=== PATIENT | female | born 1985 | race African-American/Black ===

== ENCOUNTER 2018-07-01 07:10 | Inpatient (IN) ==
[2018-07-01] MEDS ORDERED: Dextrose 50% in Water 50 ML Vial IV.PUSH PRN (15:54)
[2018-07-01] MEDS ORDERED: Insulin NovoLOG Aspart Correctional Sugar Inj SQ PRN (15:54)
--- NOTE | 2018-07-01 16:30 | P.HP ---
History of Present Illness Primary Care Physician: UNKNOWN Chief Complaint: Left arm weakness, slurred speech, left facial droop History of Present Illness: 32-year-old female with known history of hypertension who presented to the hospital because of left upper extremity weakness, slurred speech, left facial droop. Patient states that she is in normal state of health until she woke up this morning at approximately 530. When she got out of bed she woke up with both her arms extended above her head and she noticed that her left upper extremity was numb and weak. She went into the bathroom and looked at herself in the mirror she noticed that she had left-sided facial droop and when she tried to speak she noticed that she has some slurred speech. Patient states that approximate 15 minutes however symptoms resolved and she was able to speak without any slurring and her facial droop disappeared. She proceeded to take her daughter to the supervisor net making which was at approximately 6:00 this morning when she got back home and the proximal 615 she went to take the garbage out when her left arm was numb again where she could not lift it. She called her who is a physician and he told her that she needs to go to the hospital for further evaluation. By the time the patient got to the emergency department right after 7 AM this morning her symptoms have completely resolved. Patient did have workup which did not indicate any acute stroke or intracranial hemorrhage. It was recommended the patient be observed for TIA. Patient denies any symptoms at this time. - Diagnosis (1) TIA (transient ischemic attack) Review of Systems All other systems reviewed negative except as stated in HPI Neurologic: Reports abnormal speech, Reports localized weakness, Reports weakness PMFSH - History History Provided By: Patient - Medical History Medical History: Medical History (Last Reviewed 07/01/18 @ 16:25 by KEON Greenberg) Fibroids HTN (hypertension) - Surgical History Surgical History: Surgical History (Last Reviewed 07/01/18 @ 16:25 by KEON Greenberg) H/O: - Family History Family History: Family History (Last Updated 07/01/18 @ 16:25 by KEON Greenberg) Father Family history of renal failure Family history of heart disease - Tobacco History Second Hand Smoke Exposure: No Smoking Status: Never smoker - Alcohol History How Often Do You Have a Drink Containing Alcohol: Monthly or less - Substance Use History Substance History: No History of Abuse Medications and Allergies Active Medications: Active Medications Aspirin (Aspirin Chew) 162 mg PO DAILY [facility] Dextrose (D50w Vial) 50 ml IV.PUSH UNSCH PRN PRN Reason: per Hypoglycemic Protocol Glucagon (Glucagon Inj) 1 mg OTHER UNSCH PRN PRN Reason: per Hypoglycemic Protocol Insulin Aspart (Novolog Insulin Correctional Sugar Inj) 0 unit SQ ACHS PRN; Protocol PRN Reason: Per Protocol Allergies Allergy/AdvReac Type Severity Reaction Status Date / Time morphine Allergy Hives Verified 07/01/18 07:23 Home Medications Medication Instructions Recorded Confirmed Type losartan 100 mg PO TID 07/01/18 07/01/18 History Exam Narrative: GENERAL: Well-developed, well-nourished, in no acute distress. alert and orientated HEENT: Head is normocephalic without any lesions or masses noted. Facial features are symmetric. Eyes: Pupils equal round reactive to light. Extraocular muscles are intact. Conjunctivae were clear. Oropharyngeal: Pharynx without any erythema edema. Tongue is midline without deviation. Buccal mucosa is moist without any masses or lesions NECK: Supple without any masses. Trachea midline no deviation. No JVD, no bruits are appreciated CARDIAC: Regular rhythm, regular rate. S1/S2 are heard. No murmurs gallops or rubs. LUNGS: Clear to auscultation bilaterally. No wheeze, rhonchi or rales. No use of accessory muscles on inspiration or expiration. ABDOMEN: Soft, nontender. Nondistended. Bowel sounds heard in all 4 quadrants. No organomegaly or masses. Negative rebound, negative guarding EXTREMITIES: No edema, pulses are equal bilaterally. No cyanosis or clubbing NEUROLOGY: Mood and affect appear appropriate. Cranial nerves II through XII grossly intact. Muscle strength 5/5 in upper and lower extremities bilaterally. Deep tendon reflexes are 2+ in upper and lower extremities bilaterally. Caprini VTE Risk Assessment Caprini VTE Risk Assessment: No/Low Risk (score <= 1) Caprini Risk Assessment Model: Point Value = 1 Point Value = 2 Point Value = 3 Point Value = 5 Age 41-60 Minor surgery BMI > 25 kg/m2 Swollen legs Varicose veins or History of unexplained or recurrent spontaneous Oral contraceptives or hormone replacement Sepsis (< 1 month) Serious lung disease, including pneumonia (< 1 month) Abnormal pulmonary function Acute myocardial infarction Congestive heart failure (< 1 month) History of inflammatory bowel disease Medical patient at bed rest Age 61-74 Arthroscopic surgery Major open surgery (> 45 min) Laparoscopic surgery (> 45 min) Malignancy Confined to bed (> 72 hours) Immobilizing plaster cast Central venous access Age >= 75 History of VTE Family history of VTE Factor V Leiden Prothrombin [id number] Lupus anticoagulant Anticardiolipin antibodies Elevated serum homocysteine Heparin-induced thrombocytopenia Other congenital or acquired thrombophilia Stroke (< 1 month) Elective arthroplasty Hip, pelvis, or leg fracture Acute spinal cord injury (< 1 month) Prophylaxis Regimen: Total Risk Factor Score Risk Level Prophylaxis Regimen 0-1 Low Early ambulation 2 Moderate Order ONE of the following: *Sequential Compression Device (SCD) *Heparin 5000 units SQ BID 3-4 Higher Order ONE of the following medications: *Heparin 5000 units SQ TID *Enoxaparin/Lovenox 40 mg SQ daily (WT < 150 kg, CrCl > 30 mL/min) *Enoxaparin/Lovenox 30 mg SQ daily (WT < 150 kg, CrCl > 10-29 mL/min) *Enoxaparin/Lovenox 30 mg SQ BID (WT < 150 kg, CrCl > 30 mL/min) AND/OR *Sequential Compression Device (SCD) 5 or more Highest Order ONE of the following medications: *Heparin 5000 units SQ TID (Preferred with Epidurals) *Enoxaparin/Lovenox 40 mg SQ daily (WT < 150 kg, CrCl > 30 mL/min) *Enoxaparin/Lovenox 30 mg SQ daily (WT < 150 kg, CrCl > 10-29 mL/min) *Enoxaparin/Lovenox 30 mg SQ BID (WT < 150 kg, CrCl > 30 mL/min) AND *Sequential Compression Device (SCD) Assessment and Plan - Assessment (1) TIA (transient ischemic attack) Code(s): G45.9 - Transient cerebral ischemic attack, unspecified Status: Acute - Plan Acute neurological symptoms of left upper extremity weakness, facial droop, slurred speech. Rule out CVA versus TIA -CT of the head, CTA of the head and neck were unremarkable for any acute abnormality -Patient will be started on daily aspirin -We will need to obtain MRI of the brain, MRA of the brain, echocardiogram -Obtain further laboratory studies to include B12, folate, lipid panel, hemoglobin A 1C, TSH, sed rate -Obtain PT/OT/ST evaluations -Head of bed flat, permissive hypertension -Neurology consult Anemia -Obtain anemia studies -Monitor hemoglobin hematocrit Hypertension -Permissive hypertension at this time DVT prevention -Sequential compression devices
[2018-07-01 21:21] LABS: Reticulocyte Percent 1.5 % (0.4-3.0)
[2018-07-01 21:43] LABS: Iron 59 mcg/dL (50-170); Lactate Dehydrogenase 192 U/L (84-246)
[2018-07-01 21:45] LABS: % Iron Saturation 13.8 % (20-50); Ferritin 4 ng/mL (8-252); Total Iron Binding Capacity 427 mcg/dL (250-450)
[2018-07-01 21:54] LABS: Vitamin B12 382 pg/mL (193-986)
[2018-07-01 22:15] LABS: Hemoglobin A1c 5.7 % (4.3-6.0)
[2018-07-02 06:41] LABS: Hematocrit 31.2 % (35.0-46.0); Hemoglobin 9.4 gm/dL (11.6-15.3); Mean Corpuscular Hemoglobin 24.3 pg (27.0-34.0); Mean Corpuscular Volume 80.2 fL (80.0-100.0); Platelet Count 306 th/mm3 (150-450); Red Cell Distribution Width 17.1 % (11.6-17.2); White Blood Count 3.6 th/mm3 (4.0-11.0)
[2018-07-02 06:52] LABS: Mean Corpuscular HGB Conc 30.3 % (32.0-36.0)
--- NOTE | 2018-07-02 08:15 | P.PN ---
Subjective Interval history: 32-year-old female who is seen and examined today for follow-up on TIA. Patient is doing well today. Denies any persistent symptoms.. Vital signs are stable. Patient remains afebrile. Physical Exam Vital signs: Vital Signs 07/01/18 15:54 07/01/18 17:54 07/01/18 20:00 Temperature 97.6 F 97.8 F 99.1 F Pulse Rate 84 78 80 Respiratory Rate 20 20 18 Blood Pressure 139/89 130/84 114/65 Pulse Oximetry 100 100 98 07/02/18 00:00 Temperature 97.8 F Pulse Rate 71 Respiratory Rate 18 Blood Pressure 124/82 Pulse Oximetry 96 Intake & Output 07/01/18 07/02/18 07/02/18 18:59 06:59 18:59 Intake Total 45 / 45 Balance 45 / 45 Weight 70.5 kg Intake: Oral 45 / 45 Other: # Voids 1 3 Date of Last Bowel Movement 07/01/18 Weight On Admission 70.5 kg Narrative: GENERAL: Well-developed, well-nourished, in no acute distress. alert and orientated HEENT: Head is normocephalic without any lesions or masses noted. Facial features are symmetric. Eyes: Extraocular muscles are intact. Conjunctivae were clear. NECK: Supple without any masses. Trachea midline no deviation. No JVD, CARDIAC: Regular rhythm, regular rate. S1/S2 are heard. No murmurs gallops or rubs. LUNGS: Clear to auscultation bilaterally. No wheeze, rhonchi or rales. No use of accessory muscles on inspiration or expiration. ABDOMEN: Soft, nontender. Nondistended. Bowel sounds heard in all 4 quadrants. No organomegaly or masses. Negative rebound, negative guarding EXTREMITIES: No edema, pulses are equal bilaterally. No cyanosis or clubbing NEUROLOGY: Mood and affect appear appropriate. Cranial nerves II through XII grossly intact. Moving all extremities, speech is clear Results - Labs CBC & Chem 7: 07/02/18 05:17 Laboratory Results - last 24 hr 07/01/18 07/01/18 07/01/18 16:55 16:55 16:55 WBC RBC Hgb Hct MCV MCH MCHC RDW Plt Count MPV ESR 29 H Retic Count Absolute Retic Haptoglobin POC Glucose Hemoglobin A1c 5.7 Iron TIBC % Saturation Ferritin Lactate Dehydrogenase Vitamin B12 382 Folate Greater than 20.0 H TSH 1.410 Rheumatoid Factor Scrn Rheumatoid Factor Titer 07/01/18 07/01/18 07/01/18 16:55 18:14 18:14 WBC RBC Hgb Hct MCV MCH MCHC RDW Plt Count MPV ESR Retic Count 1.5 Absolute Retic 55.5 Haptoglobin 57 POC Glucose 99 Hemoglobin A1c Iron 59 TIBC 427 % Saturation 13.8 L Ferritin 4 L Lactate Dehydrogenase 192 Vitamin B12 Folate TSH Rheumatoid Factor Scrn Negative Rheumatoid Factor Titer Not Reportable 07/01/18 07/02/18 07/02/18 20:58 05:17 07:29 WBC 3.6 L RBC 3.90 L Hgb 9.4 L Hct 31.2 L MCV 80.2 MCH 24.3 L MCHC 30.3 L RDW 17.1 Plt Count 306 MPV 10.0 ESR Retic Count Absolute Retic Haptoglobin POC Glucose 106 90 Hemoglobin A1c Iron TIBC % Saturation Ferritin Lactate Dehydrogenase Vitamin B12 Folate TSH Rheumatoid Factor Scrn Rheumatoid Factor Titer Assessment and Plan - Assessment (1) TIA (transient ischemic attack) Code(s): G45.9 - Transient cerebral ischemic attack, unspecified Status: Inactive - Plan Acute CVA -Patient presented with acute neurological symptoms of left upper extremity weakness, facial droop, slurred speech. -CT of the head, CTA of the head and neck were unremarkable for any acute abnormality -Continue daily aspirin -MRI does indicate small CVA -Echocardiogram please see results -Hemoglobin A1c, TSH were unremarkable -Mildly elevated sed rate -Mildly low B12, will give B12 1000 mcg IM x1 -awaiting lipid panel -Awaiting PT/OT/ST evaluations -Neurology consult -Discussed with neurology who recommended the patient undergo OMARI, cardiology was consulted patient was transferred main hospital for OMARI. Anemia -Anemia studies do indicate iron deficient anemia -Will start ferrous sulfate 325 mg twice daily -Monitor hemoglobin hematocrit Hypertension -Permissive hypertension at this time DVT prevention -Sequential compression devices
[2018-07-02] MEDS: Ferrous Sulfate 325 MG Tablet PO SCH ×2 (10:10→21:18)
[2018-07-02 10:16] LABS: Chol/HDL Ratio 1.61 Ratio; HDL Cholesterol 79.1 mg/dL (40.0-60.0)
--- NOTE | 2018-07-02 11:07 | ECHRPT ---
Indication: CVA/TIA CONCLUSIONS Normal left ventricular size. Wall thickness is normal. The left ventricular systolic function is normal with an estimated ejection fraction in the range of 55-60%. Trace mitral valve regurgitation. There is trace tricuspid valve regurgitation. The estimated pulmonary arterial pressure is 33 mmHg. BP: / HR: Rhythm: MEASUREMENTS (Male / Female) Normal Values Technical Quality:Good 2D ECHO LV Diastolic Diameter PLAX 4.5 cm 4.2 - 5.9 / 3.9 - 5.3 cm LV Systolic Diameter PLAX 3.1 cm IVS Diastolic Thickness 0.9 cm 0.6 - 1.0 / 0.6 - 0.9 cm LVPW Diastolic Thickness 0.9 cm 0.6 - 1.0 / 0.6 - 0.9 cm LV Relative Wall Thickness 0.4 RV Internal Dim ED PLAX 2.6 cm Aortic Root Diameter 3.2 cm LA Systolic Diameter LX 2.9 cm 3.0 - 4.0 / 2.7 - 3.8 cm DOPPLER AV Peak Velocity 143.0 cm/s AV Peak Gradient 8.2 mmHg LVOT Peak Velocity 112.0 cm/s LVOT Peak Gradient 5.0 mmHg Mitral E Point Velocity 83.9 cm/s Mitral A Point Velocity 67.1 cm/s Mitral E to A Ratio 1.3 LV E' Lateral Velocity 12.9 cm/s Mitral E to LV E' Lateral Ratio 6.5 LV E' Septal Velocity 8.8 cm/s Mitral E to LV E' Septal Ratio 9.6 TR Peak Velocity 238.0 cm/s TR Peak Gradient 22.7 mmHg Right Atrial Pressure 10.0 mmHg Pulmonary Artery Systolic Pressu 32.7 mmHg Right Ventricular Systolic Press 32.7 mmHg PV Peak Velocity 88.2 cm/s PV Peak Gradient 3.1 mmHg FINDINGS LEFT VENTRICLE Normal left ventricular size. Wall thickness is normal. The left ventricular systolic function is normal with an estimated ejection fraction in the range of 55-60%. RIGHT VENTRICLE Normal right ventricular size and systolic function. LEFT ATRIUM The left atrial size is normal. RIGHT ATRIUM The right atrial size is normal. ATRIAL SEPTUM Normal atrial septal thickness without atrial level shunting by limited color doppler interrogation. AORTA The aortic root and proximal ascending aorta are normal in size on limited imaging. MITRAL VALVE Trace mitral valve regurgitation. AORTIC VALVE Trileaflet aortic valve. No aortic valve stenosis or regurgitation. TRICUSPID VALVE There is trace tricuspid valve regurgitation. The estimated pulmonary arterial pressure is 33 mmHg. PULMONARY VALVE No pulmonary valve regurgitation or stenosis. VESSELS The inferior vena cava is normal in size. PERICARDIUM No pericardial effusion. Viet Villegas MD (Electronically Signed) Final Date:02 July 2018 11:05
[2018-07-02] MEDS ORDERED: Gadobutrol PF 7.5 MMOL/7.5 ML Vial (for RAD) IV.SIG ONE (11:09)
--- NOTE | 2018-07-02 11:49 | MR ---
EXAM DATE: 07/02/2018 11:16 AM EDT AGE/SEX: 32 years / Female INDICATIONS: Slurred speech. Left facial droop. Left hand numbness. CLINICAL DATA: This is the patient's initial encounter. Patient reports that signs and symptoms have been present for 1 day and indicates a pain score of 0/10. MEDICAL/SURGICAL HISTORY: Hypertension. section. COMPARISON: No prior exams available for comparison. TECHNIQUE: Multiplanar, multisequence examination of the brain was performed without and with 7 ml Ga davist (gadobutrol) contrast as a single exam dose. FINDINGS: There is a tiny approximately 9 mm area of infarction in the posterior right frontal lobe. There is n o associated mass effect or midline shift. No hydrocephalus. No associated hemorrhage is identified. No other infarcts. CONCLUSION: 1. Tiny 9 mm acute infarction in the posterior right frontal lobe. No other areas of infarction. No hemorrhage or mass effect. Electronically signed by: Luca Youngblood MD 07/02/2018 11:48 AM EDT
[2018-07-02 20:08] LABS: Amphetamine Screen,Urine Neg (Neg); Barbiturate Screen,Urine Neg (Neg); Cannabinoid Screen,Urine Neg (Neg); Cocaine Screen,Urine Neg (Neg)
--- NOTE | 2018-07-02 20:14 | MB ---
cc: Mike Cowart MD DATE: 07/02/2018 HISTORY OF PRESENT ILLNESS: A 32-year-old right-handed woman with hypertension. She has been on control pills. She does have a history of heavy periods. Had some fibroids taken out of the uterus at one time. She has a history of migraines years ago, but not in the last 5-10 years. History of meningitis at 7 months old, a little blood transfusion at that time. Nevertheless, yesterday, she woke up at 5 a.m. and her left hand was tingling and somewhat numb, and then she noticed in the mirror her left face was not moving as well, and her speech was slightly slurred. This has all resolved. No headache, chest pain or palpitations associated with it. REVIEW OF SYSTEMS: She denies any diabetes, hypercholesterolemia, AR, CABG, stent, angioplasty, AFib, Coumadin, renal, hepatic or pulmonary disease, thyroid disease, lupus, ulcer, cancer, seizure or stroke. She denies any family history for miscarriages or blood clots, nor in herself. She denies any sickle cell. SOCIAL HISTORY: She is not a smoker, occasionally has a drink. No drugs. No IV drug abuse. Lives with and child. FAMILY HISTORY: Positive for grandmother, cancer. Negative for seizure or stroke. MEDICATIONS AT HOME: Losartan. PHYSICAL EXAMINATION: VITAL SIGNS: Sinus rhythm, afebrile, 74, 18, 123/79. NECK: There were no carotid bruits. HEART: Regular rhythm. I did not detect a murmur. NEUROLOGIC: Pupils were equal. Visual appiah full. Extraocular movements intact without nystagmus. Face is symmetric. Normal sensation. Tongue was midline. There is no drift. She had normal strength in upper and lower extremities bilaterally. Fasting movements are symmetric and normal. DTRs trace throughout. Toes downgoing bilaterally. Pinprick is intact throughout including the left hand. Fasting movements are symmetric and normal in the left hand. Not ataxic on [id number]. Speech is fluent. She is not aphasic. No facial droop on the left. No numbness in the left side of her mouth to pinprick. LABORATORY DATA: White count is 3.6, hematocrit 31, platelet count 306. Sedimentation rate 29. Rheumatoid factor is negative. LAKESHIA is negative. Basic metabolic profile: Ferritin is 4. LDL is 42. Beta hCG is negative. Folate, B12, thyroid is normal. Haptoglobin normal. Hypercoag screen is pending. BMP was normal. Troponin was negative. CPK normal. Triglycerides normal. UA was negative. Urine screen positive for amphetamines. DIAGNOSTIC DATA: MRI of the brain shows small right peripheral MCA infarct. CTA neck and algaaciq of Klein: Normal. Echocardiogram: Normal. IMPRESSION AND PLAN: Small right infarct. She is to have a OMARI done and a 30-day heart monitor. We will put her on aspirin 325 a day for now. After 2 months, she could lower it down to 81 mg of aspirin, if her workup is otherwise negative. Hypercoagulable screen and other labs are pending. We will check an MR venogram of the brain. I will be following her with you in the hospital. MD TYLER Herrera/jamal , 05:08 PM , 05:16 PM
[2018-07-02 20:20] LABS: Opiate Screen,Urine Neg (Neg)
[2018-07-03 04:15] LABS: Clarity,Urine Clear (Clear); Color,Urine Yellow (Yellw/Straw)
[2018-07-03 04:16] LABS: Bilirubin,Urine Negative (Negative); Glucose,Urine (UA) Negative (Negative); Leukocyte Esterase,Urine Negative (Negative); Nitrite,Urine Negative (Negative); Urobilinogen,Urine 0.2 mg/dL (Less than 2)
[2018-07-03 04:20] LABS: Bacteria,Urine Occasional /hpf; Squamous Epithelial Cell,Urine 0-5 /hpf (0-5); WBC,Urine 0-5 /hpf (0-5)
[2018-07-03 05:29] LABS: Creatine Kinase 54 U/L (26-192)
[2018-07-03] MEDS ORDERED: Chlorhexidine Gluconate 2% 1 Pack (2 Cloths) TOPICAL ONE (06:30)
[2018-07-03] MEDS ORDERED: Sodium Chlor 0.9% Inj 500 ML IV.CONT ONE (06:30)
[2018-07-03] MEDS: Ferrous Sulfate 325 MG Tablet PO SCH ×2 (08:33→21:24)
[2018-07-03] MEDS ORDERED: Gadobutrol PF 10 MMOL/10 ML Vial (for RAD) IV.SIG ONE (11:38)
--- NOTE | 2018-07-03 12:21 | MR ---
EXAM DATE: 07/03/2018 12:12 PM EDT AGE/SEX: 32 years / Female INDICATIONS: Slurred speech. Left facial droop. CLINICAL DATA: This is the patient's initial encounter. Patient reports that signs and symptoms have been present for 2 days and indicates a pain score of 0/10. MEDICAL/SURGICAL HISTORY: Hypertension. section. COMPARISON: [facility], MR HEAD W & W/O CONTRAST, 07/02/2018. . TECHNIQUE: MR cerebral venography is performed with 7cc ml Gadavist (gadobutrol) contrast (single ex am dose). Source images, 3D volume MIP, and sliding thin slab MIP reconstructions were reviewed. FINDINGS: Sagittal sinus appears patent and the transverse and sigmoid sinuses appear asymmetric but also appea r patent. No venous thrombosis is identified. CONCLUSION: No venous thrombosis is identified. Electronically signed by: Jayson Salcedo MD 07/03/2018 12:20 PM EDT
--- NOTE | 2018-07-03 14:10 | P.PNNEU ---
Subjective Subjective Comments: no new spells Active Medications: Active Medications Aspirin (Aspirin Chew) 162 mg PO DAILY [facility] Last Admin: 07/03/18 08:33 Dose: 162 mg Ferrous Sulfate (Ferosul) 325 mg PO BID [facility] Last Admin: 07/03/18 08:33 Dose: 325 mg Lactated Ringer's (Lr 1000 Ml Inj) 1,000 mls @ 30 mls/hr IV.CONT .Q24H ONE Stop: 07/04/18 06:29 Sodium Chloride (Ns Inj) 500 mls @ 30 mls/hr IV.CONT .[id number] ONE Stop: 07/03/18 23:09 Allergies/Adverse Reactions: Allergies Allergy/AdvReac Type Severity Reaction Status Date / Time morphine Allergy Hives Verified 07/01/18 07:23 Physical Exam Vital signs: Vital Signs 07/02/18 16:00 07/02/18 20:00 07/03/18 00:00 Temperature 98.7 F 98 F Pulse Rate 74 89 66 Respiratory Rate 18 18 Blood Pressure 123/79 135/94 H Pulse Oximetry 100 98 07/03/18 01:13 07/03/18 04:00 07/03/18 04:08 Temperature 98.4 F 97.3 F L Pulse Rate 67 52 L 59 L Respiratory Rate 15 18 Blood Pressure 109/75 118/74 Pulse Oximetry 100 100 07/03/18 08:00 07/03/18 12:00 Temperature 98.3 F 97.9 F Pulse Rate 69 84 Respiratory Rate 20 20 Blood Pressure 127/85 137/100 H Pulse Oximetry 100 100 Intake & Output 07/02/18 07/03/18 07/03/18 18:59 06:59 18:59 Weight 72.8 kg Other: Date of Last Bowel Movement 07/01/18 06/25/18 Narrative: vff face sym moves all well Objective Laboratory Results - last 24 hr 07/02/18 07/02/18 07/02/18 09:20 19:50 19:50 POC Glucose Total Creatine Kinase Troponin I Total Protein (PEP) 7.4 Urine Color Yellow Urine Clarity Clear Urine pH 7.0 Ur Specific Weed 1.010 Urine Protein Negative Urine Glucose (UA) Negative Urine Ketones Negative Urine Occult Blood Negative Urine Nitrate Negative Urine Bilirubin Negative Urine Urobilinogen 0.2 Ur Leukocyte Esterase Negative Urine WBC 0-5 Ur Squamous Epith Cells 0-5 Urine Bacteria Occasional H Micro UA Comment Culture not ind Ur Microscopic Review Microscopic reviewed Urine Culture Comments Culture not ind Urine Opiates Screen Neg Ur Barbiturates Screen Neg Ur Amphetamines Screen Neg U Benzodiazepines Scrn Neg Urine Cocaine Screen Neg U Cannabinoids Screen Neg 07/02/18 07/03/18 21:20 03:50 POC Glucose 109 Total Creatine Kinase 54 Troponin I Less than 0.02 L Total Protein (PEP) Urine Color Urine Clarity Urine pH Ur Specific Weed Urine Protein Urine Glucose (UA) Urine Ketones Urine Occult Blood Urine Nitrate Urine Bilirubin Urine Urobilinogen Ur Leukocyte Esterase Urine WBC Ur Squamous Epith Cells Urine Bacteria Micro UA Comment Ur Microscopic Review Urine Culture Comments Urine Opiates Screen Ur Barbiturates Screen Ur Amphetamines Screen U Benzodiazepines Scrn Urine Cocaine Screen U Cannabinoids Screen Microbiology 07/02/18 13:00 Stool Occult Blood ([facility]) - Final Stool Hemoccult negative Review/Management - Review/Management Plan: imp await cards and arun mrv nl holter pend labs nl so far hyper pend continue asa if arun neg can dc will need cardionet o/p sr so far
--- NOTE | 2018-07-03 14:15 | P.PNIM ---
Subjective Interval history: Patient reports he is feeling well today. Inquiring about when she will go home. No stroke symptoms, no neurological deficits. Physical Exam Vital signs: Vital Signs 07/02/18 16:00 07/02/18 20:00 07/03/18 00:00 Temperature 98.7 F 98 F Pulse Rate 74 89 66 Respiratory Rate 18 18 Blood Pressure 123/79 135/94 H Pulse Oximetry 100 98 07/03/18 01:13 07/03/18 04:00 07/03/18 04:08 Temperature 98.4 F 97.3 F L Pulse Rate 67 52 L 59 L Respiratory Rate 15 18 Blood Pressure 109/75 118/74 Pulse Oximetry 100 100 07/03/18 08:00 07/03/18 12:00 Temperature 98.3 F 97.9 F Pulse Rate 69 84 Respiratory Rate 20 20 Blood Pressure 127/85 137/100 H Pulse Oximetry 100 100 Intake & Output 07/02/18 07/03/18 07/03/18 18:59 06:59 18:59 Weight 72.8 kg Other: Date of Last Bowel Movement 07/01/18 06/25/18 Narrative: GENERAL: This is a well-nourished, well-developed patient, in no apparent distress. CARDIOVASCULAR: Normal rate and regular rhythm without murmurs, gallops, or rubs. RESPIRATORY: Good respiratory efforts. Breath sounds equal and clear to auscultation bilaterally. GASTROINTESTINAL: Abdomen soft, non-tender, non-distended. Normal active bowel sounds MUSCULOSKELETAL: Extremities without cyanosis, or edema. NEURO: Alert & Oriented x4 to person, place, time, situation. Moves all ext x4 PSYCH: Appropriate mood and affect. Results - Labs CBC & Chem 7: 07/02/18 05:17 Laboratory Results - last 24 hr 07/02/18 07/02/18 07/02/18 09:20 19:50 19:50 POC Glucose Total Creatine Kinase Troponin I Total Protein (PEP) 7.4 Urine Color Yellow Urine Clarity Clear Urine pH 7.0 Ur Specific Unity 1.010 Urine Protein Negative Urine Glucose (UA) Negative Urine Ketones Negative Urine Occult Blood Negative Urine Nitrate Negative Urine Bilirubin Negative Urine Urobilinogen 0.2 Ur Leukocyte Esterase Negative Urine WBC 0-5 Ur Squamous Epith Cells 0-5 Urine Bacteria Occasional H Micro UA Comment Culture not ind Ur Microscopic Review Microscopic reviewed Urine Culture Comments Culture not ind Urine Opiates Screen Neg Ur Barbiturates Screen Neg Ur Amphetamines Screen Neg U Benzodiazepines Scrn Neg Urine Cocaine Screen Neg U Cannabinoids Screen Neg 07/02/18 07/03/18 21:20 03:50 POC Glucose 109 Total Creatine Kinase 54 Troponin I Less than 0.02 L Total Protein (PEP) Urine Color Urine Clarity Urine pH Ur Specific Unity Urine Protein Urine Glucose (UA) Urine Ketones Urine Occult Blood Urine Nitrate Urine Bilirubin Urine Urobilinogen Ur Leukocyte Esterase Urine WBC Ur Squamous Epith Cells Urine Bacteria Micro UA Comment Ur Microscopic Review Urine Culture Comments Urine Opiates Screen Ur Barbiturates Screen Ur Amphetamines Screen U Benzodiazepines Scrn Urine Cocaine Screen U Cannabinoids Screen Microbiology 07/02/18 13:00 Stool Stool Occult Blood ([facility]) - Final Hemoccult negative - Imaging Impressions Head MRI 07/02/18 08:12 CONCLUSION: 1. Tiny 9 mm acute infarction in the posterior right frontal lobe. No other areas of infarction. No hemorrhage or mass effect. Head/Brain Mag Res Venography 07/03/18 00:00 CONCLUSION: No venous thrombosis is identified. Assessment and Plan - Assessment (1) TIA (transient ischemic attack) Code(s): G45.9 - Transient cerebral ischemic attack, unspecified Status: Inactive - Plan 32-year-old female admitted with: Acute CVA -Patient presented with acute neurological symptoms of left upper extremity weakness, facial droop, slurred speech. -CT of the head, CTA of the head and neck were unremarkable for any acute abnormality -MRI does indicate small right peripheral MCA infarct -Echocardiogram grossly unremarkable. -Hemoglobin A1c, TSH were unremarkable -Mildly elevated sed rate -Mildly low B12, will give B12 1000 mcg IM x1 -Lipids okay. -Appreciate neurology following. Recommended OMARI. Aspirin 325 mg daily for 2 months then 81 mg daily. Cardiology consulted. Anemia -Anemia studies suggest iron deficient anemia -Continue ferrous sulfate 325 mg twice daily -Monitor hemoglobin hematocrit Hypertension -Patient reports she was taking losartan 100 mg 3 times a day. This is an unusual frequency for this medication. Blood pressure so far has been acceptable except for one reading of 137/100. For now I will continue to monitor her blood pressure. If it remains elevated, would favor starting amlodipine 5 mg daily. DVT prevention -Patient is ambulatory. Encourage ambulation.
[2018-07-03 14:43] LABS: Baso % (Auto) 1.4 % (0.0-2.0); Eos % (Auto) 1.3 % (0.0-4.0); Hematocrit 32.3 % (35.0-46.0); Hemoglobin 10.4 gm/dL (11.6-15.3); Lymph # (Auto) 1.1 th/mm3 (1.0-4.8); Lymph % (Auto) 32.2 % (9.0-44.0); Mean Corpuscular HGB Conc 32.2 % (32.0-36.0); Mean Corpuscular Hemoglobin 25.7 pg (27.0-34.0); Mean Corpuscular Volume 79.8 fL (80.0-100.0); Mean Platelet Volume 9.7 fL (7.0-11.0); Mono # (Auto) 0.3 th/mm3 (0.0-0.9); Mono % (Auto) 8.7 % (0.0-8.0); Neut # (Auto) 1.9 th/mm3 (1.8-7.7); Neut % (Auto) 56.4 % (16.0-70.0); Platelet Count 302 th/mm3 (150-450); Red Blood Count 4.04 mil/mm3 (4.00-5.30); Red Cell Distribution Width 17.4 % (11.6-17.2); White Blood Count 3.4 th/mm3 (4.0-11.0)
[2018-07-03 15:05] LABS: Anion Gap 7 meq/L (5-15); Blood Urea Nitrogen 12 mg/dL (7-18); Calcium 8.7 mg/dL (8.5-10.1); Carbon Dioxide 27.5 meq/L (21.0-32.0); Chloride 106 meq/L (98-107); Glomerular Filtration Rate Greater Than 89 mL/min (>89); Glucose,Random 69 mg/dL (74-106); Potassium 3.8 meq/L (3.5-5.1); Sodium 140 meq/L (136-145)
--- NOTE | 2018-07-03 22:41 | MB ---
cc: Viet Villegas MD DATE: 07/03/2018 REASON FOR CONSULTATION: Evaluation for OMARI. HISTORY OF PRESENT ILLNESS: This is a 32-year-old woman who I am consulted on to do a OMARI because she has had a stroke. She has a history of hypertension. She is on control pills. She has a history of heavy periods. She has a past history of migraines. On the day of admission, she woke up at 5:00 in the morning with tingling and numbness in her left hand, some drooping on the left side of her face, and slightly slurred speech. The symptoms have resolved. She has subsequently undergone an MRI of the head, which shows a 9 mm acute infarction in the posterior right frontal lobe. The patient has no family history of stroke. She has never had a stroke before. She does not smoke or use drugs. She was transferred from [facility] to [place] to have this procedure. This is Thursday, so that procedure will need to be scheduled on Thursday. The patient has no cardiac symptoms, but she does mention some tightness in her chest, which is relieved by her shifting her position. She does not have symptoms that sound like angina. PAST MEDICAL HISTORY: Includes fibroids and hypertension. PAST SURGICAL HISTORY: Includes . FAMILY HISTORY: Notable for heart disease and renal failure. There is no stroke history. MEDICATIONS: She has been placed on aspirin. PHYSICAL EXAMINATION: GENERAL: Reveals a well-developed, well-nourished female in no acute distress. VITAL SIGNS: Charted. HEENT: Unremarkable. NECK: No JVD. No bruits. CHEST: Clear to auscultation. CARDIOVASCULAR: Normal S1, S2. Regular rate and rhythm without murmurs or gallops. ABDOMEN: Soft, nontender with no masses or organomegaly. EXTREMITIES: No clubbing, cyanosis or edema. NEUROLOGIC: She is alert and oriented with no obvious focal deficits. LABORATORY DATA: Notable for her being anemic with a hematocrit of 31.2 and 32.3 on repeat. Her sedimentation rate is elevated at 29. There are no other remarkable lab test findings. IMPRESSION: A cerebrovascular accident of unknown etiology. PLAN: Informed consent has been obtained for a OMARI, which I will have done as early as possible as I can get it scheduled on Thursday. MD IVIS Alberts/rw , 04:35 PM , 04:42 PM
--- NOTE | 2018-07-04 01:16 | HM ---
Date Performed: 07/02/2018 Time Performed: 15:33:00 HOOKUP DATE: 07/02/18 03:33:00 PM Fri ANALYSIS START TIME: 07/02/2018 3:38:00 PM ANALYSIS END TIME: 07/03/2018 10:42:42 AM PATIENT AGE: 32 PATIENT HEIGHT PATIENT WEIGHT DRUG LIST PATIENT DIAGNOSIS TEST NARRATIVE: The patient's average heart rate was 74 BPM. Heart rates greater than 120 B PM were noted < 1% of the time. Heart rates less than 50 BPM were noted < 1% of the time. No arias ses exceeding 2.0 seconds were noted. 1 ventricular ectopics, which represented < 1% of the total beat count, were noted. The highest ventricular ectopic frequency occurred from 07:00 AM to 08:00 A M Sat. During this time 1 VE(s) occurred. Ventricular ectopics were observed as 1 isolated beat(s) only. No couplets or runs were noted. No supraventricular ectopics were noted. No episodes o f ST depression (defined as -1.0 mm or more) were noted in channel 1. No episodes of ST depression ( defined as -1.0 mm or more) were noted in channel 2. No episodes of ST depression (defined as -1.0 m m or more) were noted in channel 3. TEST INTERPRETATION: Predominant rhythm was normal sinus. Isolated PVC. No pauses exceeding 2.0 seconds were noted. Signed by : Fariba Tang
[2018-07-04] MEDS: Ferrous Sulfate 325 MG Tablet PO SCH ×2 (09:30→21:39)
--- NOTE | 2018-07-04 12:56 | P.PNIM ---
Subjective Interval history: Patient reports she is feeling okay. No new stroke symptoms. Cardiology planning for OMARI tomorrow. Physical Exam Vital signs: Vital Signs 07/03/18 16:00 07/03/18 20:00 07/04/18 00:00 Temperature 98.7 F 98.5 F 98.1 F Pulse Rate 74 81 74 Respiratory Rate 20 20 20 Blood Pressure 143/93 H 136/90 126/76 Pulse Oximetry 98 99 99 07/04/18 04:00 07/04/18 08:00 Temperature 98.1 F 98.1 F Pulse Rate 72 76 Respiratory Rate 20 20 Blood Pressure 132/82 127/74 Pulse Oximetry 99 99 Intake & Output 07/03/18 07/04/18 07/04/18 18:59 06:59 18:59 Intake Total 200 / 200 442 / 442 Balance 200 / 200 442 / 442 Weight 69.5 kg Intake: Oral 200 / 200 442 / 442 Other: # Voids 1 Date of Last Bowel Movement 07/03/18 07/03/18 Narrative: GENERAL: This is a well-nourished, well-developed patient, in no apparent distress. CARDIOVASCULAR: Normal rate and regular rhythm without murmurs, gallops, or rubs. RESPIRATORY: Good respiratory efforts. Breath sounds equal and clear to auscultation bilaterally. GASTROINTESTINAL: Abdomen soft, non-tender, non-distended. Normal active bowel sounds MUSCULOSKELETAL: Extremities without cyanosis, or edema. NEURO: Alert & Oriented x4 to person, place, time, situation. Moves all ext x4 PSYCH: Appropriate mood and affect. Results - Labs CBC & Chem 7: 07/03/18 13:50 07/03/18 13:50 Laboratory Results - last 24 hr 07/03/18 07/03/18 13:50 13:50 WBC 3.4 L RBC 4.04 Hgb 10.4 L Hct 32.3 L MCV 79.8 L MCH 25.7 L MCHC 32.2 RDW 17.4 H Plt Count 302 MPV 9.7 Neut % (Auto) 56.4 Lymph % (Auto) 32.2 [place] % (Auto) 8.7 H Eos % (Auto) 1.3 Baso % (Auto) 1.4 Neut # (Auto) 1.9 Lymph # (Auto) 1.1 [place] # (Auto) 0.3 Eos # (Auto) 0.0 Baso # (Auto) 0.0 WBC Differential . Differential Comment Auto diff final Sodium 140 Potassium 3.8 Chloride 106 Carbon Dioxide 27.5 Anion Gap 7 BUN 12 Creatinine 0.70 Estimated GFR Greater than 89 Random Glucose 69 L Calcium 8.7 Assessment and Plan - Plan 32-year-old female admitted with: Acute CVA -Patient presented with acute neurological symptoms of left upper extremity weakness, facial droop, slurred speech. -CT of the head, CTA of the head and neck were unremarkable for any acute abnormality -MRI does indicate small right peripheral MCA infarct -Echocardiogram grossly unremarkable. -Hemoglobin A1c, TSH were unremarkable -Mildly elevated sed rate -Mildly low B12, will give B12 1000 mcg IM x1 -Lipids okay. -Appreciate neurology following. Recommended OMARI. This is planned for tomorrow. Aspirin 325 mg daily for 2 months then 81 mg daily. Anemia -History of dysfunctional uterine bleeding. Likely iron deficiency anemia. -Continue ferrous sulfate 325 mg twice daily -Monitor hemoglobin/hematocrit Hypertension -Patient reports she was taking losartan 100 mg 3 times a day. This is an unusual frequency for this medication. Blood pressure so far has been acceptable except for one reading of 137/100. For now I will continue to monitor her blood pressure. If it remains elevated, would favor starting amlodipine 5 mg daily. DVT prevention -Patient is ambulatory. Encourage ambulation.
--- NOTE | 2018-07-04 19:10 | P.PNNEU ---
Subjective Active Medications: Active Medications Aspirin (Aspirin Chew) 162 mg PO DAILY [facility] Last Admin: 07/04/18 09:30 Dose: 162 mg Ferrous Sulfate (Ferosul) 325 mg PO BID [facility] Last Admin: 07/04/18 09:30 Dose: 325 mg Allergies/Adverse Reactions: Allergies Allergy/AdvReac Type Severity Reaction Status Date / Time morphine Allergy Hives Verified 07/01/18 07:23 Physical Exam Vital signs: Vital Signs 07/03/18 20:00 07/04/18 00:00 07/04/18 04:00 Temperature 98.5 F 98.1 F 98.1 F Pulse Rate 81 74 72 Respiratory Rate 20 20 20 Blood Pressure 136/90 126/76 132/82 Pulse Oximetry 99 99 99 07/04/18 08:00 07/04/18 12:00 07/04/18 16:00 Temperature 98.1 F 98.6 F 98.4 F Pulse Rate 93 H 81 90 Respiratory Rate 20 20 20 Blood Pressure 127/74 131/75 131/87 Pulse Oximetry 99 100 100 Intake & Output 07/04/18 07/04/18 07/05/18 06:59 18:59 06:59 Intake Total 442 / 442 400 / 400 Balance 442 / 442 400 / 400 Weight 69.5 kg Intake: Oral 442 / 442 400 / 400 Other: # Voids 1 4 Date of Last Bowel Movement 07/03/18 07/03/18 Narrative: VFF NL EXAM Review/Management - Review/Management Plan: imp await cards and arun mrv nl holter pend labs nl so far hyper pend continue asa if arun neg can dc will need cardionet o/p sr so far 07/04/18 holter nl no new spells for arun in am asa fu hypercoag cardionet o/p
--- NOTE | 2018-07-05 08:11 | P.PNNEU ---
Subjective Subjective Comments: sr Active Medications: Active Medications Aspirin (Aspirin Chew) 162 mg PO DAILY [facility] Last Admin: 07/04/18 09:30 Dose: 162 mg Ferrous Sulfate (Ferosul) 325 mg PO BID [facility] Last Admin: 07/04/18 21:39 Dose: 325 mg Allergies/Adverse Reactions: Allergies Allergy/AdvReac Type Severity Reaction Status Date / Time morphine Allergy Hives Verified 07/01/18 07:23 Physical Exam Vital signs: Vital Signs 07/04/18 12:00 07/04/18 16:00 07/04/18 20:00 Temperature 98.6 F 98.4 F 99.1 F Pulse Rate 81 90 99 H Respiratory Rate 20 20 20 Blood Pressure 131/75 131/87 140/81 Pulse Oximetry 100 100 99 07/05/18 00:00 07/05/18 04:00 Temperature 98.4 F 98 F Pulse Rate 80 83 Respiratory Rate 20 20 Blood Pressure 130/74 115/67 Pulse Oximetry 99 100 Intake & Output 07/04/18 07/05/18 07/05/18 18:59 06:59 18:59 Intake Total 400 / 400 Balance 400 / 400 Weight 69.7 kg Intake: Oral 400 / 400 Other: # Voids 4 2 Date of Last Bowel Movement 07/03/18 07/03/18 Narrative: VFF NL EXAM no change Review/Management - Review/Management Plan: imp await cards and arun mrv nl holter pend labs nl so far hyper pend continue asa if arun neg can dc will need cardionet o/p sr so far 07/04/18 holter nl no new spells for arun in am asa fu hypercoag cardionet o/p 07/05/18 stable for arun if neg dc on asa and order cardionet dr bean o/p i will fu hyper labs and in office
[2018-07-05 10:04] VITALS: BP 124/88; RESP 18; TEMP 98.4; O2SAT 99
[2018-07-05] MEDS: Ferrous Sulfate 325 MG Tablet PO SCH (12:38)
[2018-07-05 13:48] VITALS: PULSE 93
--- NOTE | 2018-07-05 14:06 | P.DS ---
Date of admission: 07/03/18 14:31 Primary care physician: UNKNOWN Brief History from admission: HPI as documented by the admitting physician 32-year-old female with known history of hypertension who presented to the hospital because of left upper extremity weakness, slurred speech, left facial droop. Patient states that she is in normal state of health until she woke up this morning at approximately 530. When she got out of bed she woke up with both her arms extended above her head and she noticed that her left upper extremity was numb and weak. She went into the bathroom and looked at herself in the mirror she noticed that she had left-sided facial droop and when she tried to speak she noticed that she has some slurred speech. Patient states that approximate 15 minutes however symptoms resolved and she was able to speak without any slurring and her facial droop disappeared. She proceeded to take her daughter to the transportation engineering technician which was at approximately 6:00 this morning when she got back home and the proximal 615 she went to take the garbage out when her left arm was numb again where she could not lift it. She called her who is a physician and he told her that she needs to go to the hospital for further evaluation. By the time the patient got to the emergency department right after 7 AM this morning her symptoms have completely resolved. Patient did have workup which did not indicate any acute stroke or intracranial hemorrhage. It was recommended the patient be observed for TIA. Patient denies any symptoms at this time. Patient update on day of discharge: Patient reports she is feeling great today. She denies any neurological symptoms. Per nursing, cardiology cleared the patient for discharge. Had OMARI this morning that was unremarkable DS: Medications - Discharge Medications Prescriptions: aspirin 162 mg PO DAILY #30 tab ferrous sulfate [FeroSul] 325 mg PO BID #60 tab DS: Summary Hospital Course: 32-year-old female admitted and treated for the following: Acute CVA -Patient presented with acute neurological symptoms of left upper extremity weakness, facial droop, slurred speech. -CT of the head, CTA of the head and neck were unremarkable for any acute abnormality -MRI does indicate small right peripheral MCA infarct -Echocardiogram grossly unremarkable. -Hemoglobin A1c, TSH were unremarkable -Mildly elevated sed rate -Mildly low B12, will give B12 1000 mcg IM x1 -Lipids okay. -Appreciate neurology following. Recommended OMARI which was unremarkable. Patient discharged on aspirin daily per patient's. She will follow-up with neurology outpatient for hypercoagulable workup results. Anemia -History of dysfunctional uterine bleeding. Likely iron deficiency anemia. -Continue ferrous sulfate 325 mg twice daily Hypertension -Patient reports she was taking losartan 100 mg 3 times a day. This is an unusual frequency for this medication. Blood pressure during her hospital stay has been acceptable. I do not see indication to continue antihypertensives at this point. The patient was counseled and advised to follow-up outpatient with PCP to continue to monitor. - Time Spent with Patient Total time spent providing and/or coordinating discharge services: Less than 30 minutes - Quality: VTE Deep Vein Thrombosis/Pulmonary Embolism Present on Admission: No Exam Vital signs: Vital Signs 07/04/18 16:00 07/04/18 20:00 07/05/18 00:00 Temperature 98.4 F 99.1 F 98.4 F Pulse Rate 90 99 H 80 Respiratory Rate 20 20 20 Blood Pressure 131/87 140/81 130/74 Pulse Oximetry 100 99 99 07/05/18 04:00 07/05/18 08:00 Temperature 98 F 98.4 F Pulse Rate 83 93 H Respiratory Rate 20 18 Blood Pressure 115/67 124/88 Pulse Oximetry 100 99 Intake & Output 07/04/18 07/05/18 07/05/18 18:59 06:59 18:59 Intake Total 400 / 400 Balance 400 / 400 Weight 69.7 kg Intake: Oral 400 / 400 Other: # Voids 4 2 Date of Last Bowel Movement 07/03/18 07/03/18 07/03/18 Narrative: GENERAL: This is a well-nourished, well-developed patient, in no apparent distress. CARDIOVASCULAR: Normal rate and regular rhythm without murmurs, gallops, or rubs. RESPIRATORY: Good respiratory efforts. Breath sounds equal and clear to auscultation bilaterally. GASTROINTESTINAL: Abdomen soft, non-tender, non-distended. Normal active bowel sounds MUSCULOSKELETAL: Extremities without cyanosis, or edema. NEURO: Alert & Oriented x4 to person, place, time, situation. Moves all ext x4 PSYCH: Appropriate mood and affect. Results Procedures completed during hospitalization: None Labs on day of discharge: Labs from last 24 hours 07/02/18 09:20 RPR Nonreactive - Impressions ITS Impressions Head MRI 07/02/18 08:12 CONCLUSION: 1. Tiny 9 mm acute infarction in the posterior right frontal lobe. No other areas of infarction. No hemorrhage or mass effect. Head/Brain Mag Res Venography 07/03/18 00:00 CONCLUSION: No venous thrombosis is identified. Discharge Plan - Discharge Disposition Patient Disposition: 01 Discharge Home - Discharge Condition Condition: Good - Discharge Order Discharge Orders: Discharge Order (Routine); Ordered 07/05/18 Ordered By: Daniel Webb - Physicians Team Primary Care Provider: UNKNOWN, Attending Provider: Daniel Webb Other Providers: Mike Narvaez MD ; Viet Villegas MD - Rxs /Orders / Referrals /Forms Prescriptions: New aspirin 81 mg Tablet,Chewable 162 mg PO DAILY Qty: 30 RF: 0 ferrous sulfate [FeroSul] 325 mg (65 mg iron) Tablet 325 mg PO BID Qty: 60 RF: 0 Discontinued losartan 100 mg Tablet 100 mg PO TID Referrals: UNKNOWN, [Primary Care Provider] - See Instructions (Please call [facility] to schedule appt. [phone] [facility],[id number] ) - Discharge Instructions Patient Printed Instructions: Iron Supplements (By mouth), Aspirin (By mouth), Transient Ischemic Attack (GEN), Self Care Measures After a Stroke (DC) - Post Discharge Care Plan Care Plan Goals: Your Health Problems: Goals to Promote Your Health: * To prevent worsening of your condition * To maintain your health at the optimal level Directions to Meet Your Goals: * Take your medications as prescribed * Follow your dietary instruction * Follow activity as directed * Keep your appointments as scheduled * Take your immunizations and boosters as scheduled * If your symptoms worsen call your PCP * If no PCP go to Urgent Care or Emergency Room Smoking is dangerous to your health. Avoid second hand smoke. You may reach the 24-hour crisis hotline for domestic abuse at .
[2018-07-06 14:18] LABS: Factor V Leiden Mutation Negative (Negative); Protein C Antigen 79 % (70-150)
[2018-07-06 23:52] LABS: Homocysteine (Cardiovascular) 8.9 umol/L (<10.4)
[2018-07-07 13:53] LABS: Dil Russell Viper Venom Conf ( ND (NEGATIVE); Dil Russell Viper Venom Time M ND (CORRECTED); Lupus Anticoagulant PTT Screen 33 seconds (< OR = 40)
[2018-07-08 03:51] LABS: Activated Protein C Resistance 4.6 ratio (> OR = 2.1)
== END 2018-07-05 15:06 | disposition home or self-care (01) ==
LOC: PHEDDLT 15:10 → PH3 15:10 → N05 07-02 22:45
PROVIDERS: ADMIT Family Medicine; ATTEND Family Medicine